=== PATIENT | male | born 2000 | race Two or more races ===

== ENCOUNTER 2024-07-08 04:23 | Inpatient (IN) | payer SELFPAY ==
[~2024-07-08] VITALS: Ht 175.3 cm; Wt 95.4 kg
--- NOTE | 2024-07-08 04:49 | ED.PDOC ---
GI ASSESSMENT HPI Comments 24-year-old male with no reported PMHx presents with a chief complaint of abdominal pain x 1 day with associated nausea, vomiting, and nasal congestion. Patient states that his pain is localized to his diffuse abdomen, tender to his RLQ, nonradiating, describes as aching/sharp sensation, and rates his pain a 8/10. Patient also mentions that he has been experiencing some flu-like symptoms and is congested. Patient denies any injuries or trauma prior to onset of symptoms. Chief Complaint: Abdominal Pain Time Seen by MD: 04:44 Reviewed Notes: Medications, Allergies Allergies: Coded Allergies: NO KNOWN ALLERGIES (Unverified , 07/08/24) Information Source: Patient Mode of Arrival: Ambulatory Timing: Days Duration: Since onset Prehospital treatment: None Quality: Aching, Sharp Vomitus: Food Particles Stool: Normal Severity: Moderate Recent: None Recent Hx of: None Pain Location: Diffuse, RLQ Past Medical History PAST MEDICAL HISTORY: Denies Surgical History: Denies all surgeries Family History Family History: Reviewed,noncontributory to illness Social History Smoker: Non-Smoker Alcohol: Denies ETOH Use Drugs: Denies Drug Use Lives In: Home Constitutional: denies: chills, diaphoresis, fatigue, fever, malaise, sweats, weakness, others EENTM: reports: nose congestion; denies: blurred vision, double vision, ear bleeding, ear discharge, ear drainage, ear pain, ear ringing, eye pain, eye redness, hearing loss, mouth pain, mouth swelling, nasal discharge, nose bleeding, nose pain, photophobia, tearing, throat pain, throat swelling, voice changes, others Respiratory: denies: cough, hemoptysis, orthopnea, SOB at rest, shortness of breath, SOB with excertion, stridor, wheezing, others Cardiovascular: denies: chest pain, dizzy spells, diaphoresis, Dyspnea on exertion, edema, irregular heart beat, left arm pain, lightheadedness, palpitations, PND, syncope, others Gastrointestinal: reports: abdominal pain, nausea, vomiting; denies: abdomen distended, blood streaked bowels, constipated, diarrhea, dysphagia, difficulty swallowing, hematemesis, melena, poor appetite, poor fluid intake, rectal bleeding, rectal pain, others Genitourinary: denies: burning, dysuria, flank pain, frequency, hematuria, incontinence, penile discharge, penile sore, pain, testicle pain, testicle swelling, urgency, others Neurological: denies: dizziness, fainting, headache, left sided numbness, left sided weakness, numbness, paresthesia, pre-existing deficit, right sided numbness, right sided weakness, seizure, speech problems, tingling, tremors, weakness, others Musculoskeletal: denies: back pain, gout, joint pain, joint swelling, muscle pain, muscle stiffness, neck pain, others Integumetry: denies: bruises, change in color, change in hair/nails, dryness, laceration, lesions, lumps, rash, wounds, others Allergic/Immunocompromised: denies: Difficulty Healing, Frequent Infections, Hives, Itching, others Hematologic/Lymphatic: denies: anemia, blood clots, easy bleeding, easy bruising, swollen glands, others Endocrine: denies: excessive hunger, excessive sweating, excessive thirst, excessive urination, flushing, intolerance to cold, intolerance to heat, unexplained weight gain, unexplained weight loss, others Psychiatric: denies: anxiety, bipolar disorder, depression, hopeless, panic disorder, schizophrenia, sleepless, suicidal, others All Other Systems: Reviewed and Negative Physical Exam General Appearance: No Apparent Distress, Normal HEENT: Normal ENT Inspection, Pharynx Normal, TMs Normal Neck: Full Range of Motion, Non-Tender, Normal, Normal Inspection Respiratory: Chest Non-Tender, Lungs Clear, No Accessory Muscle Use, No Respiratory Distress, Normal Breath Sounds Cardiovascular: No Edema, No JVD, No Murmur, No Gallop, Normal Peripheral Pulses, Regular Rate/Rhythm Breast Exam: Deferred Gastrointestinal: No Organomegaly, No Pulsatile Mass, Normal Bowel Sounds, RLQ, Soft, Tenderness Genitalia: Deferred Pelvic: Deferred Rectal: Deferred Extremities: No calf tenderness, Normal capillary refill, Normal inspection, Normal range of motion, Non-tender, No pedal edema Musculoskeletal : Apperance: Normal Neurologic: Alert, rnp II-XII nml as Tested, No Motor Deficits, Normal Affect, Normal Mood, No Sensory Deficits Cerebellar Function: Normal Reflexes: Normal Skin: Dry, Normal Color, Warm Lymphatic: No Adenopathy Was a procedure done? Was a procedure done?: No GI differential Dx Differential Diagnosis: Appendicitis, Diverticular disease, Gastritis/PUD, Gastroenteritis, Pancreatitis, Electrolyte Imbalance, Food Poisoning, Other X-Ray, Labs, Meds, VS Vital Signs Date Time Temp Pulse Resp B/P (MAP) Pulse Ox O2 Delivery O2 Flow Rate FiO2 07/08/24 05:11 75 16 99 Room Air* 0 21 07/08/24 05:11 75 16 139/75 (96) 99 07/08/24 04:38 98.0 78 14 130/79 (96) 97 98.0 Lab Test 07/08/24 05:02 07/08/24 04:42 Range/Units White Blood Count 18.9 H 4.4-10.8 10^3/uL Red Blood Count 5.16 4.5-5.90 10^6/uL Hemoglobin 16.0 13.5-17.5 g/dL Hematocrit 45.8 41.0-53.0 % Mean Corpuscular Volume 88.7 80.0-100.0 fL Mean Corpuscular Hemoglobin 31.1 28.0-32.0 pg Mean Corpuscular Hemoglobin Concent 35.0 32.0-36.0 g/dL Red Cell Distribution Width 13.3 11.8-14.3 % Platelet Count 227 140-450 10^3/uL Mean Platelet Volume 9.1 6.9-10.8 fL Neutrophils (%) (Auto) 85.6 H 37.0-80.0 % Lymphocytes (%) (Auto) 7.8 L 10.0-50.0 % Monocytes (%) (Auto) 6.4 0.0-12.0 % Eosinophils (%) (Auto) 0.1 0.0-7.0 % Basophils (%) (Auto) 0.1 0.0-2.0 % Neutrophils # (Auto) 16.1 H 1.6-8.6 10 ^3/uL Lymphocytes # (Auto) 1.5 0.4-5.4 10 ^3/uL Monocytes # (Auto) 1.2 0-1.3 10 ^3/uL Eosinophils # (Auto) 0 0-0.8 10 ^3/uL Basophils # (Auto) 0 0-0.2 10 ^3/uL Nucleated Red Blood Cells 0.1 % Sodium Level 138 136-145 mmol/L Potassium Level 3.9 3.5-5.1 mmol/L Chloride Level 102 98-107 mmol/L Carbon Dioxide Level 26 20-31 mmol/L Anion Gap 10 5-15 Blood Urea Nitrogen 13 9-23 mg/dL Creatinine 1.03 0.700-1.30 mg/dL Glomerular Filtration Rate Calc 103 >90 mL/min BUN/Creatinine Ratio 12.6 10.0-20.0 Serum Glucose 109 H 74-106 mg/dL Calcium Level 10.3 8.7-10.4 mg/dL Total Bilirubin 0.9 0.2-1.0 mg/dL Aspartate Amino Transferase (AST) 16 13-40 U/L Alanine Aminotransferase (ALT) 40 7-40 U/L Alkaline Phosphatase 77 46-116 U/L Total Protein 8.2 5.7-8.2 g/dL Albumin 4.9 H 3.2-4.8 g/dL Lipase 27 12-53 U/L Urine Color Yellow Yellow Urine Clarity Clear Clear Urine pH 5.5 5.0-9.0 Urine Specific [place] 1.035 1.001-1.035 Urine Protein Trace H Negative Urine Ketones 1+ H Negative Urine Blood Trace H Negative /uL Urine Nitrite Negative Negative Urine Bilirubin Negative Negative Urine Urobilinogen Normal Negative mg/dL Urine Leukocyte Esterase Negative Negative /uL Urine RBC 6 0 - 3 /hpf Urine Microscopic WBC 1 0-3 /HPF Urine Squamous Epithelial Cells None seen <5 /hpf Urine Bacteria None seen None Seen /hpf Urine Mucus Few None Seen Urine Glucose Normal Normal mg/dL Current Medications Medications (Trade) Dose Ordered Sig/Zaira Route Start Time Stop Time Status Last Admin Sodium Chloride 1,000 ml @ 1,000 mls/hr Q1H ONCE IVB 07/08/24 04:45 07/08/24 05:44 DC 07/08/24 05:10 Time of 1ST Reevaluation: 05:14 Reevaluation 1ST: Unchanged Patient Education/Counseling: Diagnosis, Treatment, Prognosis Family Education/Counseling: No Family Present Departure 1 Departure Time of Disposition: 06:03 Impression: Primary Impression: Appendicitis Disposition: ADMITTED INPATIENT Admit to: Med Surg Condition: Guarded Comments Acute Appendicitis Subjective : 24-year-old male presents to the emergency department with acute onset of abdominal pain over the past day, accompanied by nausea, vomiting, and malaise. The pain is notably localized to the right lower quadrant. Laboratory studies reveal an elevated WBC count of 18.9, urinalysis showing 1+ ketones, and an otherwise unremarkable chemistry panel. CT abdomen/pelvis confirms appendicitis without evidence of perforation. Objective: General: Alert, in mild distress due to pain HEENT: Normocephalic, atraumatic Cardiovascular: Regular rate and rhythm, normal heart sounds Respiratory: Clear to auscultation bilaterally Abdomen: Tenderness in RLQ, guarding present Skin: Warm, dry, no rashes Neuro: Alert and oriented x3 Labs: WBC: 18.9 UA: 1+ ketones Chemistry panel: Within normal limits Imaging: CT A/P: Acute appendicitis without perforation Billing: Primary Diagnosis: K35.80 - Unspecified acute appendicitis Secondary Diagnoses: R11.2 - Nausea with vomiting R53.81 - Other malaise Assessment: This is a 24-year-old male presenting with classic symptoms of acute appendicitis, confirmed by physical examination findings of RLQ tenderness and supported by elevated WBC count and CT imaging showing appendicitis without perforation. Plan: #Acute Appendicitis General surgery consultation obtained Admit to hospital for surgical management NPO status IV fluids Pain management as needed #Nausea/Vomiting Antiemetics as needed Monitor oral intake #Disposition Admission to general surgery service Anticipate appendectomy Patient Instructions: You have been diagnosed with appendicitis, which is an infection of your appendix. You will be admitted to the hospital under the care of our surgery team. Do not eat or drink anything until further notice, as you will likely need surgery to remove your appendix. The nurses will give you medicine for pain and nausea as needed. Your surgery team will discuss the operation details with you and answer any questions you may have. This is a common procedure with generally good outcomes when treated promptly. Critical Care Note Critical Care Time?: Yes (35 min-critical care time only) Critical care comment: Total critical care time: Approximately 36 minutes Due to a high probability of clinically significant, life threatening deterioration, the patient required my highest level of preparedness to intervene emergently and I personally spent this critical care time directly and personally managing the patient. This critical care time included obtaining a history; examining the patient; pulse oximetry; ordering and review of studies; arranging urgent treatment with development of a management plan; evaluation of patient's response to treatment; frequent reassessment; and, discussions with other providers. This critical care time was performed to assess and manage the high probability of imminent, life-threatening deterioration that could result in multi-organ failure. It was exclusive of separately billable procedures and treating other patients. Stability Stability form required: No Heart Score Heart Score: Heart Score Response (Comments) Value History N/A 0 EKG N/A 0 Age N/A 0 Risk Factors N/A 0 Troponin N/A 0 Total 0 I personally scribed for BETH WANG MD ([email or web address]) on 07/08/24 at 04:49. Electronically submitted by Joseph Bernard ([email or web address]). BETH WANG MD Jul 08, 2024 04:49
[2024-07-08 04:51] LABS: Urine Bacteria None Seen /hpf (None Seen)
[2024-07-08 04:58] LABS: Urine Blood TRACE /uL (Negative); Urine Clarity Clear (Clear); Urine Color Yellow (Yellow); Urine Mucus FEW (None Seen); Urine Protein, UAD TRACE (Negative); Urine Specific Gravity 1.035 (1.001-1.035); Urine Squamous Epithelial Cell None Seen /hpf (<5); Urine Urobilinogen Normal (Negative); Urine WBC 1 /HPF (0-3); Urine pH 5.5 (5.0-9.0)
[2024-07-08] MEDS: SODIUM CHLORIDE 0.9% 1,000 ML IVB ONE (05:10)
[2024-07-08 05:11] VITALS: PULSE 75; RESP 16; O2SAT 99
[2024-07-08] MEDS: MORPHINE SULFATE 4 MG/ML SYR/VIAL IV ONE ×2 (05:15→15:46)
[2024-07-08] MEDS: ONDANSETRON HCL 4 MG/2 ML VIAL IV ONE ×3 (05:15→15:46)
[2024-07-08 05:26] LABS: Basophils # (auto) 0 10 ^3/uL (0-0.2); Basophils % (auto) 0.1 % (0.0-2.0); Eosinophils # (auto) 0 10 ^3/uL (0-0.8); Eosinophils % (auto) 0.1 % (0.0-7.0); Hematocrit 45.8 % (41.0-53.0); Lymphocytes # (auto) 1.5 10 ^3/uL (0.4-5.4); Lymphocytes % (auto) 7.8 % (10.0-50.0); Mean Corpuscular Hemoglobin 31.1 pg (28.0-32.0); Mean Corpuscular Volume 88.7 fL (80.0-100.0); Monocytes # (auto) 1.2 10 ^3/uL (0-1.3); Monocytes % (auto) 6.4 % (0.0-12.0); Neutrophils # (auto) 16.1 10 ^3/uL (1.6-8.6); Neutrophils % (auto) 85.6 % (37.0-80.0); Nucleated Red Blood Cells % 0.1 %; Platelet Count (auto) 227 10^3/uL (140-450); Red Blood Cells 5.16 10^6/uL (4.5-5.90); Red Cell Distribution Width 13.3 % (11.8-14.3); White Blood Cell 18.9 10^3/uL (4.4-10.8)
[2024-07-08] MEDS: IOHEXOL 300 MG/ML 100ML BOTTLE IJ ONE (05:27)
[2024-07-08 05:33] LABS: Alanine Aminotransferase 40 U/L (7-40); Alkaline Phosphatase 77 U/L (46-116); Anion Gap 10 (5-15); Aspartate Aminotransferase 16 U/L (13-40); BUN/Creatinine Ratio 12.6 (10.0-20.0); Blood Urea Nitrogen 13 mg/dL (9-23); Calcium 10.3 mg/dL (8.7-10.4); Carbon Dioxide 26 mmol/L (20-31); Chloride 102 mmol/L (98-107); Lipase 27 U/L (12-53); Potassium 3.9 mmol/L (3.5-5.1); Sodium 138 mmol/L (136-145); Total Protein 8.2 g/dL (5.7-8.2)
[2024-07-08 05:34] LABS: Bilirubin, Total 0.9 mg/dL (0.2-1.0)
[2024-07-08 05:36] LABS: Albumin 4.9 g/dL (3.2-4.8); Glucose 109 mg/dL (74-106)
--- NOTE | 2024-07-08 05:54 | DVH ---
Exam: CT CT AB PEL WITH IV CON ONLY History: RLQ pain COMPARISON: None Technique: Multidetector spiral CT of the abdomen and pelvis was performed from lung bases to pubic s ymphysis. Intravenous contrast was administered during this examination. Portal venous imaging was o btained. Axial, coronal and sagittal multiplanar reformats were performed by the technologist on a [employer] workstation. Radiation Dose : 1. Abdomen/Pelvis: CTDIvol 13.48 mGy, DLP 824.17 mGy*cm. CONTRAST: Type of contrast: Omnipaque 300 Contrast injected: 100 ml Contrast ingested: None Findings: Lung Bases: No acute or significant lung base finding. Normal heart size. No pleural or pericardial effusion. Liver: The liver is normal in size. No focal lesions. Normal hepatic vascular enhancement. Gallbladder and Biliary Tree: Unremarkable Spleen: Unremarkable Pancreas: The pancreas is normal in appearance without focal lesions or abnormal enhancement. Adrenal Glands: Unremarkable Kidneys: No hydronephrosis. Bladder: Unremarkable Bowel: The stomach is grossly normal in appearance. Small bowel and colon are normal in caliber and d istribution. Increased wall thickening and edema and adjacent inflammatory change. There is no CT ev idence of perforation or abscess. Ascites: Absent Lymphadenopathy: No mesenteric, retroperitoneal or periportal lymphadenopathy. Abdominal Wall and Mesentery: Unremarkable. Vasculature: The visualized abdominal aorta is normal in size and caliber. Abdominal and pelvic vess els demonstrate normal enhancement. Pelvic Organs: Unremarkable Musculoskeletal: No aggressive focal bony lesions, acute fractures or dislocation. IMPRESSION: 1. Acute non perforated appendicitis. 2. These findings were discussed with and acknowledged by Dr. Lopez of the emergency department at 5 :51 a.m. On July 08, 2024. Radiation optimization: All CT scans at this facility use at least one of these dose optimization melina hniques: automated exposure control mA and/or kV adjustment per patient size (includes targeted exam s where dose is matched to clinical indication) or iterative reconstruction.
[2024-07-08] MEDS: SODIUM CHLORIDE 0.9% 1,000 ML IV ONE (06:56)
[2024-07-08] MEDS: metroNIDAZOLE 500MG/100ML 100 ML IV ONE (06:57)
[2024-07-08] MEDS: ceFAZolin 2 GM/D5W50ml 50 ML IV ONE (06:57)
[2024-07-08] MEDS ORDERED: SODIUM CHLORIDE 0.9% 1,000 ML IV SCH (07:45)
[2024-07-08] MEDS ORDERED: ONDANSETRON HCL 4 MG/2 ML VIAL IV PRN ×2 (07:45→08:00)
[2024-07-08] MEDS ORDERED: MORPHINE SULFATE INJ 2 MG/ml SYRG IV PRN ×2 (07:45→08:00)
[2024-07-08] MEDS ORDERED: ACETAMINOPHEN 325 MG TAB PO PRN (07:45)
[2024-07-08] MEDS ORDERED: HYDROcodone-ACET 5/325MG TAB PO PRN ×2 (07:45→08:00)
[2024-07-08 08:16] LABS: Partial Thromboplastin Time 27.5 SEC (24.5-34.5); Prothrombin Time 10.6 sec (9.3-11.8)
--- NOTE | 2024-07-08 09:57 | DVHHP2 ---
History of Present Illness Reason for Visit: Abdominal pain History of Present Illness This 24-year-old male mainly Faroese-speaking patient with no past medical history presents in the ED with a chief complaint of abdominal pain. The patient reports abdominal pain localized to right lower quadrant, tender in palpation, and is associated with nausea and vomiting started yesterday. Denies fever, chills,. Past Medical History Denies Past Surgical History Denies Family History Reviewed, non-contributory to the management of this case. Past Social History The patient lives at home, denies smoking, alcohol or illicit drugs abuse. Review of Systems Constitutional: Yes: Malaise; No: Fever, Chills, Sweats, Weakness, Other Eyes: No: Pain, Vision change, Conjunctivae inflammation, Eyelid inflammation, Other, Redness ENT: No: Ear pain, Ear discharge, Nose pain, Nose discharge, Nose congestion, Mouth pain, Mouth swelling, Throat pain, Throat swelling, Other Cardiovascular: No: Chest Pain, Palpitations, Orthopnea, Paroxysmal Noc. Dyspnea, Edema, Lt Headedness, Other Gastrointestinal: Nausea, Vomiting, Abdominal Pain; No: Diarrhea, Constipation, Melena, Hematochezia, Other Genitourinary: No Dysuria, No Frequency, No Incontinence, No Hematuria, No Retention, No Other Musculoskeletal: No: other, neck pain, shoulder pain, arm pain, back pain, hand pain, leg pain, foot pain Skin: No: Rash, Lesions, Jaundice, Bruising, Other Neurological: No: Weakness, Numbness, Incoordination, Change in speech, Con fusion, Seizures, Other Allergies: Coded Allergies: NO KNOWN ALLERGIES (Unverified , 07/08/24) Medications Current Medications Medications Dose Ordered Sig/Zaira Route Start Time Stop Time Status Last Admin Dose Admin Ondansetron HCl 4 mg Q4HP PRN IV 07/08/24 08:00 Morphine Sulfate 2 mg Q4HPRN PRN IV 07/08/24 08:00 Sodium Chloride 1,000 ml @ 100 mls/hr Q10H IV 07/08/24 08:00 Acetaminophen/ Hydrocodone Bitart 1 tab Q4HP PRN PO 07/08/24 08:00 Acetaminophen 650 mg Q6HP PRN PO 07/08/24 08:00 Exam Vital Signs Vital Signs Date Time Temp Pulse Resp B/P (MAP) Pulse Ox O2 Delivery O2 Flow Rate FiO2 07/08/24 07:20 Room Air* 0 21 07/08/24 07:20 98.0 83 15 127/78 (94) 99 98.0 General Appearance: Alert, Oriented X3, mild distress HEENT: Atraumatic, PERRLA, EOMI, Mucous membr. moist/pink Respiratory: Clear to auscultation, Normal air movement Cardiovascular: Regular rate, Normal S1, Normal S2 Abdominal: Normal bowel sounds, Soft, Other (Mild tenderness to right lower quadrant) Extremities: No clubbing, No cyanosis, No edema, Normal pulses, No ten derness/swelling Skin: No rashes, No breakdown, No significant lesion Neuro: Normal gait, Normal speech, Strength at 5/5 X4 ext, Normal tone Psych/Mental Status: Mental status NL Labs/Xrays Labs Test 07/08/24 07:43 07/08/24 05:02 07/08/24 04:42 Range/Units Lactic Acid Level 1.7 0.4-2.0 mmol/L White Blood Count 18.9 H 4.4-10.8 10^3/uL Red Blood Count 5.16 4.5-5.90 10^6/uL Hemoglobin 16.0 13.5-17.5 g/dL Hematocrit 45.8 41.0-53.0 % Mean Corpuscular Volume 88.7 80.0-100.0 fL Mean Corpuscular Hemoglobin 31.1 28.0-32.0 pg Mean Corpuscular Hemoglobin Concent 35.0 32.0-36.0 g/dL Red Cell Distribution Width 13.3 11.8-14.3 % Platelet Count 227 140-450 10^3/uL Mean Platelet Volume 9.1 6.9-10.8 fL Neutrophils (%) (Auto) 85.6 H 37.0-80.0 % Lymphocytes (%) (Auto) 7.8 L 10.0-50.0 % Monocytes (%) (Auto) 6.4 0.0-12.0 % Eosinophils (%) (Auto) 0.1 0.0-7.0 % Basophils (%) (Auto) 0.1 0.0-2.0 % Neutrophils # (Auto) 16.1 H 1.6-8.6 10 ^3/uL Lymphocytes # (Auto) 1.5 0.4-5.4 10 ^3/uL Monocytes # (Auto) 1.2 0-1.3 10 ^3/uL Eosinophils # (Auto) 0 0-0.8 10 ^3/uL Basophils # (Auto) 0 0-0.2 10 ^3/uL Nucleated Red Blood Cells 0.1 % Prothrombin Time 10.6 9.3-11.8 sec Prothrombin Time INR 1.00 0.9-1.15 Activated Partial Thromboplast Time 27.5 24.5-34.5 SEC Sodium Level 138 136-145 mmol/L Potassium Level 3.9 3.5-5.1 mmol/L Chloride Level 102 98-107 mmol/L Carbon Dioxide Level 26 20-31 mmol/L Anion Gap 10 5-15 Blood Urea Nitrogen 13 9-23 mg/dL Creatinine 1.03 0.700-1.30 mg/dL Glomerular Filtration Rate Calc 103 >90 mL/min BUN/Creatinine Ratio 12.6 10.0-20.0 Serum Glucose 109 H 74-106 mg/dL Calcium Level 10.3 8.7-10.4 mg/dL Total Bilirubin 0.9 0.2-1.0 mg/dL Aspartate Amino Transferase (AST) 16 13-40 U/L Alanine Aminotransferase (ALT) 40 7-40 U/L Alkaline Phosphatase 77 46-116 U/L Total Protein 8.2 5.7-8.2 g/dL Albumin 4.9 H 3.2-4.8 g/dL Lipase 27 12-53 U/L Urine Color Yellow Yellow Urine Clarity Clear Clear Urine pH 5.5 5.0-9.0 Urine Specific [place] 1.035 1.001-1.035 Urine Protein Trace H Negative Urine Ketones 1+ H Negative Urine Blood Trace H Negative /uL Urine Nitrite Negative Negative Urine Bilirubin Negative Negative Urine Urobilinogen Normal Negative mg/dL Urine Leukocyte Esterase Negative Negative /uL Urine RBC 6 0 - 3 /hpf Urine Microscopic WBC 1 0-3 /HPF Urine Squamous Epithelial Cells None seen <5 /hpf Urine Bacteria None seen None Seen /hpf Urine Mucus Few None Seen Urine Glucose Normal Normal mg/dL PROCEDURE(s): ABPLIV - CT AB PEL WITH IV CON ONLY REASON: RLQ pain ORDER NUMBER(s): [id number], ACCESSION NUMBER(s): [id number] Exam: CT CT AB PEL WITH IV CON ONLY History: RLQ pain COMPARISON: None Technique: Multidetector spiral CT of the abdomen and pelvis was performed from lung bases to pubic symphysis. Intravenous contrast was administered during this examination. Portal venous imaging was obtained. Axial, coronal and sagittal multiplanar reformats were performed by the technologist on a separate workstation. Radiation Dose : 1. Abdomen/Pelvis: CTDIvol 13.48 mGy, DLP 824.17 mGy*cm. CONTRAST: Type of contrast: Omnipaque 300 Contrast injected: 100 ml Contrast ingested: None Findings: Lung Bases: No acute or significant lung base finding. Normal heart size. No pleural or pericardial effusion. Liver: The liver is normal in size. No focal lesions. Normal hepatic vascular enhancement. Gallbladder and Biliary Tree: Unremarkable Spleen: Unremarkable Pancreas: The pancreas is normal in appearance without focal lesions or abnormal enhancement. Adrenal Glands: Unremarkable Kidneys: No hydronephrosis. Bladder: Unremarkable Bowel: The stomach is grossly normal in appearance. Small bowel and colon are normal in caliber and distribution. Increased wall thickening and edema and adjacent inflammatory change. There is no CT evidence of perforation or abscess. Ascites: Absent Lymphadenopathy: No mesenteric, retroperitoneal or periportal lymphadenopathy. Abdominal Wall and Mesentery: Unremarkable. Vasculature: The visualized abdominal aorta is normal in size and caliber. Abdominal and pelvic vessels demonstrate normal enhancement. Pelvic Organs: Unremarkable Musculoskeletal: No aggressive focal bony lesions, acute fractures or dislocation. IMPRESSION: 1. Acute non perforated appendicitis. 2. These findings were discussed with and acknowledged by Dr. Lopez of the emergency department at 5:51 a.m. On July 08, 2024. Assessment/Plan Assessment/Plan # acute non perforated appendicitis Admit to med/surgical unit Empiric antibiotic Surgical team consult NPO until seen by surgical Pain control IV fluid # obesity Lifestyle modification counseled on diet, regular exercise, and weight loss Medical plan discussed with patient and RN Plan discussed with: Patient My Orders Orders - SALVATORE TRUONG Procedure Category Date Status Time Admit ADMIT 07/08/24 Transmitted 07:40 Code Status CODE 07/08/24 Transmitted 07:40 Complete Blood Count LAB 07/09/24 Verified 04:00 Comprehensive LAB 07/09/24 Verified Metabolic Panel 04:00 Npo (Nothing By DIET 07/08/24 Transmitted Mouth) Diet Breakfast Condition: Fair MISHA 07/08/24 In Process 07:40 Ondansetron Hcl PHA 07/08/24 In Process (Zofran) 08:00 Morphine Sulfate PHA 07/08/24 In Process Injection 08:00 Sodium Chloride 0.9% PHA 07/08/24 In Process 08:00 Hydrocodone-Acet PHA 07/08/24 In Process 5/325mg Tab ([place] 08:00 Acetaminophen Tablet PHA 07/08/24 In Process (Tylenol Tablet) 08:00 Date of Service: Jul 08, 2024 Billing Provider: SALVATORE TRUONGP Common Visit Codes: [id number] INP/OBS CARE (HIGH) SALVATORE TRUONG CONSUMER ATTORNEY Jul 08, 2024 09:57
[2024-07-08] MEDS ORDERED: HYDROmorphone HCL 2 MG/ML VL/or syr ONE (10:40)
[2024-07-08] MEDS ORDERED: KETOROLAC TROMETH 30 MG/ML 1ML VIAL ONE (10:41)
[2024-07-08] MEDS ORDERED: MIDAZOLAM HCL 2MG/2ML 2ml VIAL (1mg/ml) ONE (10:41)
[2024-07-08] MEDS ORDERED: ePHEDrine SULFATE 50 MG/ML AMP ONE (10:41)
[2024-07-08] MEDS ORDERED: ROCURONIUM 10MG/ML 10ML VIAL IV ONE (10:41)
[2024-07-08] MEDS ORDERED: LIDOCAINE 2% (LOCAL ANESTH.) PF 5ml SDV ONE (10:41)
[2024-07-08] MEDS ORDERED: GLYCOPYRROLATE 0.2 MG/ML 1ML VIAL ONE (10:41)
[2024-07-08] MEDS ORDERED: DexAMETHasone SOD PHOS 10MG/1ML VIAL INJ ONE (10:41)
[2024-07-08] MEDS ORDERED: ONDANSETRON HCL 4 MG/2 ML VIAL ONE (10:41)
[2024-07-08] MEDS ORDERED: fentaNYL CITRATE 100 MCG/2 ML VL ONE ×2 (10:41→12:06)
[2024-07-08] MEDS ORDERED: PROPOFOL 10 MG/ML 20 ML IV ONE (10:41)
--- NOTE | 2024-07-08 10:44 | DVHINCON2 ---
Consultation - Surgical Date Seen: Jul 08, 2024 Referring Physician Reason for Consultation abdominal pain History of Present Illness History of Present Illness 24M w no PMHx w 2d h/o migratory RLQ abd pain, nausea and anorexia. Reports subjective fevers and chills. Past Medical/Surgical History Past Medical/Surgical History none Family and Social History Family and Social History no drugs, alcohol, tobacco Allergies and medications Allergies: Coded Allergies: NO KNOWN ALLERGIES (Unverified , 07/08/24) Home Meds Active Scripts Amoxicillin & Pot Clavulanate (Augmentin) 500 Mg Tab, 1 TAB PO BID for 5 Days, #10 TAB Prov:JOSE DENNY PIN ATTACHER 07/09/24 Review of systems Review of Systems: HEENT:Normal, CVS:Normal, RESPIRATORY:Normal, GI:Abnormal (abd pain), :Normal, MSK:Normal, NEURO:Normal Examination Vital signs Vital Signs Date Time Temp Pulse Resp B/P (MAP) Pulse Ox O2 Delivery O2 Flow Rate FiO2 07/08/24 10:06 98.1 84 18 108/61 (77) 98 98.1 07/08/24 07:20 Room Air* 0 21 Medications Current Medications Medications (Trade) Dose Ordered Sig/Zaira Route PRN Reason Start Time Stop Time Status Last Admin Sodium Chloride 1,000 ml @ 100 mls/hr Q10H IV 07/08/24 07:45 07/08/24 07:54 DC Acetaminophen/ Hydrocodone Bitart ([place] 5/325MG Tab) 1 tab Q4HP PRN PO MODERATE PAIN (4-6 PAIN SCALE) 07/08/24 07:45 07/08/24 07:54 DC Ondansetron HCl (Zofran) 4 mg Q4HP PRN IV NAUSEA / VOMITING 07/08/24 07:45 07/08/24 07:54 DC Acetaminophen (Tylenol Tablet) 650 mg Q6HP PRN PO PAIN SCALE 1-3 OR TEMP>100.4 07/08/24 07:45 07/08/24 07:54 DC Morphine Sulfate 2 mg Q4HPRN PRN IV SEVERE PAIN (7-10 PAIN SCALE) 07/08/24 07:45 07/08/24 07:54 DC Ondansetron HCl (Zofran) 4 mg Q4HP PRN IV NAUSEA / VOMITING 07/08/24 08:00 Morphine Sulfate 2 mg Q4HPRN PRN IV SEVERE PAIN (7-10 PAIN SCALE) 07/08/24 08:00 Sodium Chloride 1,000 ml @ 100 mls/hr Q10H IV 07/08/24 08:00 Acetaminophen/ Hydrocodone Bitart ([place] 5/325MG Tab) 1 tab Q4HP PRN PO MODERATE PAIN (4-6 PAIN SCALE) 07/08/24 08:00 Acetaminophen (Tylenol Tablet) 650 mg Q6HP PRN PO PAIN SCALE 1-3 OR TEMP>100.4 07/08/24 08:00 Hydromorphone HCl (Dilaudid Injection) 0.5 mg Q10M PRN IV SEVERE PAIN (7-10 PAIN SCALE) 07/08/24 10:45 07/08/24 11:26 Laboratory Labs Test 07/08/24 07:43 07/08/24 05:02 07/08/24 04:42 Range/Units Lactic Acid Level 1.7 0.4-2.0 mmol/L White Blood Count 18.9 H 4.4-10.8 10^3/uL Red Blood Count 5.16 4.5-5.90 10^6/uL Hemoglobin 16.0 13.5-17.5 g/dL Hematocrit 45.8 41.0-53.0 % Mean Corpuscular Volume 88.7 80.0-100.0 fL Mean Corpuscular Hemoglobin 31.1 28.0-32.0 pg Mean Corpuscular Hemoglobin Concent 35.0 32.0-36.0 g/dL Red Cell Distribution Width 13.3 11.8-14.3 % Platelet Count 227 140-450 10^3/uL Mean Platelet Volume 9.1 6.9-10.8 fL Neutrophils (%) (Auto) 85.6 H 37.0-80.0 % Lymphocytes (%) (Auto) 7.8 L 10.0-50.0 % Monocytes (%) (Auto) 6.4 0.0-12.0 % Eosinophils (%) (Auto) 0.1 0.0-7.0 % Basophils (%) (Auto) 0.1 0.0-2.0 % Neutrophils # (Auto) 16.1 H 1.6-8.6 10 ^3/uL Lymphocytes # (Auto) 1.5 0.4-5.4 10 ^3/uL Monocytes # (Auto) 1.2 0-1.3 10 ^3/uL Eosinophils # (Auto) 0 0-0.8 10 ^3/uL Basophils # (Auto) 0 0-0.2 10 ^3/uL Nucleated Red Blood Cells 0.1 % Prothrombin Time 10.6 9.3-11.8 sec Prothrombin Time INR 1.00 0.9-1.15 Activated Partial Thromboplast Time 27.5 24.5-34.5 SEC Sodium Level 138 136-145 mmol/L Potassium Level 3.9 3.5-5.1 mmol/L Chloride Level 102 98-107 mmol/L Carbon Dioxide Level 26 20-31 mmol/L Anion Gap 10 5-15 Blood Urea Nitrogen 13 9-23 mg/dL Creatinine 1.03 0.700-1.30 mg/dL Glomerular Filtration Rate Calc 103 >90 mL/min BUN/Creatinine Ratio 12.6 10.0-20.0 Serum Glucose 109 H 74-106 mg/dL Calcium Level 10.3 8.7-10.4 mg/dL Total Bilirubin 0.9 0.2-1.0 mg/dL Aspartate Amino Transferase (AST) 16 13-40 U/L Alanine Aminotransferase (ALT) 40 7-40 U/L Alkaline Phosphatase 77 46-116 U/L Total Protein 8.2 5.7-8.2 g/dL Albumin 4.9 H 3.2-4.8 g/dL Lipase 27 12-53 U/L Urine Color Yellow Yellow Urine Clarity Clear Clear Urine pH 5.5 5.0-9.0 Urine Specific [place] 1.035 1.001-1.035 Urine Protein Trace H Negative Urine Ketones 1+ H Negative Urine Blood Trace H Negative /uL Urine Nitrite Negative Negative Urine Bilirubin Negative Negative Urine Urobilinogen Normal Negative mg/dL Urine Leukocyte Esterase Negative Negative /uL Urine RBC 6 0 - 3 /hpf Urine Microscopic WBC 1 0-3 /HPF Urine Squamous Epithelial Cells None seen <5 /hpf Urine Bacteria None seen None Seen /hpf Urine Mucus Few None Seen Urine Glucose Normal Normal mg/dL Examination: GENERAL:Normal, HEENT:Normal, NECK:Normal, LUNGS:Normal, CVS:Normal, ABDOMEN:Normal, ABDOMEN:Abnormal (RLQ ABD TTP, NO LEAH/GUARDING, NO HERNIAS), MSK:Normal, SKIN:Normal, NEURO:Normal, :Normal Problem List/Assessment/Plan Problems: (1) Appendicitis Assessment and Plan 24M w 2d h/o of migratory RLQ, anorexia and nausea. CT shows distended appendix with periappendiceal stranding c/w acute appendicitis. - Acute appendicitis OR for lap appy ABX NPO multimodal analgesia antiemetics prn VTE ppx Plan discussed with Plan discussed with: Patient Visit Coding Surgery Date of Service if different f: Jul 08, 2024 Billing Provider: JER MARTINEZ MD Surgery Visit Codes: [id number] - INP CONSULT <40 MIN JER MARTINEZ MD Jul 08, 2024 10:44
[2024-07-08] MEDS ORDERED: HYDROmorphone HCL 2 MG/ML VL/or syr IV PRN (10:45)
[2024-07-08] MEDS ORDERED: SUGAMMADEX 200mg/2ml Vial (100MG/ML) IV ONE (11:41)
[2024-07-08] MEDS ORDERED: KETOROLAC TROMETH 30 MG/ML 1ML VIAL IV PRN (12:15)
[2024-07-08 12:29] VITALS: PULSE 80; RESP 18; O2SAT 100
--- NOTE | 2024-07-08 12:36 | DVHOP2 ---
Operative Report - 2 Report Details Date: 07/08/24 Preop Diagnosis: acute appendicitis Postop Diagnosis: acute appendicitis, non-perforated Surgeon: Jer Martinez MD Applied Research Director: Mary Beard Anesthesiologist: Dr Moseley Anesthesia: General Consent: The patient was informed of the risks and benefits of the procedure. These include but are not limited to complications of anesthesia, postoperative infection, incomplete relief of symptoms, recurrence of symptoms, damage to blood vessels, nerves and tendons, deep venous thrombosis, pulmonary embolism and possible need for repeat surgery in the future. Complications: none Estimated Blood Loss: minimal Findings: inflamed, erythematous nonperforated appendix Name of Procedure Performed laparoscopic appendectomy Procedure Details Procedure Details: The patient was seen by me in the preoperative holding area. History, exam and radiological studies all c/w with acute appendicitis. The indications and risks of the procedure were explained and patient agreed to proceed. He was taken to the operating room and given perioperative antibiotics prior to coming to the surgery within 60 minutes of incision. General anesthesia was carried out without difficulty and a Duncan catheter was not inserted. The left arm was tucked and the abdomen was prepped with Betadine and draped in sterile fashion. A supraumbilical incision was sharply made and veress needle carefully inserted. Drop test confirmed intra-abdominal placement, and CO2 was instilled to attain an adequate pneumoperitoneum. Once pneumoperitoneum obtained, veress needle removed and 10mm trochar was inserted. Laparoscope was introduced and abdomen was surveillanced and no entry related injuries identified. Next 5mm accessory ports were placed in the LLQ and suprapubic region. Prior to insertion all trochar sites were injected with quarter percent Marcaine. The patient was placed head down and airplaned with the right side up exposing the right lower quadrant. Using graspers, the omentum was gently swept upwards and the appendix was exposed. The appendix was inflamed and suppurative but not perforated. No abscesses appreciated. The appendix was grasped carefully and lifted upwards. Using a harmonic scalpel the mesoappendix was divided down to the cecum and base of appendix. Next a Endo YARIEL with blue load was used to divide the appendix at it's base. Once divided, the appendix was placed into an Endobag. The cecum and appendiceal base were inspected. The staple line and cecum were intact and looked healthy. There was good hemostasis. The appendix with the endobag were removed and passed off for pathology. Hemostasis was again confirmed. Under direct visualization accessory ports were removed and good hemostasis noted. Pneumoperitoneum was released. The supraumbilical port was removed and fascia was closed with Vicryl suture. All skin incisions were injected with 0.25% Marcaine and closed with 4-0 Monocryl suture in a subcuticular fashion. Steri- strips and sterile dressings were applied. Instrument, needle and sponge counts correct times two. No complications. Minimal blood loss. Specimen is the appendix. Brought to the recovery room in stable surgical condition. Specimen: appendix w/ mesoappendix Condition Good Disposition Acute Care Facility JER MARTINEZ MD Jul 08, 2024 12:36
[2024-07-08] MEDS: BUPIVACAINE 0.5% MPF INJ 30ML SDV IJ ONE (13:39)
[2024-07-08] MEDS: cefOXitin 2GM/100ML 100 ML IV SCH (14:52)
[2024-07-08] MEDS: METHOCARBAMOL 500 MG TAB PO SCH (14:52)
[2024-07-08] MEDS: ceFAZolin 2 GM/D5W100ml 100 ML IV ONE (15:46)
[2024-07-08] MEDS: LIDOCAINE W/ EPINEPHRINE 1% 20ML VIAL ONE (15:46)
[2024-07-08] MEDS: SODIUM CHLORIDE 0.9% 1,000 ML IV SCH (16:20)
[2024-07-08 16:30] VITALS: BP 135/77; PULSE 87; RESP 17; TEMP 98.2; O2SAT 95
[2024-07-08] MEDS: ONDANSETRON HCL 4 MG/2 ML VIAL IV PRN (19:57)
[2024-07-08] MEDS: ACETAMINOPHEN 325 MG TAB PO PRN (19:57)
[2024-07-08 21:00] VITALS: BP 123/56; PULSE 79; RESP 19; TEMP 98.3; O2SAT 96
[2024-07-09 01:00] VITALS: BP 118/55; PULSE 73; RESP 18; TEMP 97.7; O2SAT 97
[2024-07-09 05:00] VITALS: BP 124/54; PULSE 68; RESP 17; TEMP 97.6; O2SAT 98
[2024-07-09 06:34] LABS: Basophils # (auto) 0 10 ^3/uL (0-0.2); Eosinophils # (auto) 0 10 ^3/uL (0-0.8); Hemoglobin 13.5 g/dL (13.5-17.5); Lymphocytes # (auto) 1.4 10 ^3/uL (0.4-5.4); Mean Corpuscular Hemoglobin 31.3 pg (28.0-32.0); Mean Corpuscular Hgb Conc. 34.6 g/dL (32.0-36.0); Mean Corpuscular Volume 90.6 fL (80.0-100.0); Monocytes # (auto) 0.7 10 ^3/uL (0-1.3); Monocytes % (auto) 6.2 % (0.0-12.0); Neutrophils # (auto) 9.3 10 ^3/uL (1.6-8.6); Neutrophils % (auto) 81.8 % (37.0-80.0); Platelet Count (auto) 214 10^3/uL (140-450); Red Cell Distribution Width 13.3 % (11.8-14.3); White Blood Cell 11.4 10^3/uL (4.4-10.8)
[2024-07-09 07:10] LABS: Alanine Aminotransferase 24 U/L (7-40); Albumin 4.1 g/dL (3.2-4.8); Alkaline Phosphatase 63 U/L (46-116); Anion Gap 9 (5-15); BUN/Creatinine Ratio 7.4 (10.0-20.0); Bilirubin, Total 0.6 mg/dL (0.2-1.0); Calcium 9.6 mg/dL (8.7-10.4); Carbon Dioxide 24 mmol/L (20-31); Chloride 106 mmol/L (98-107); Potassium 4.2 mmol/L (3.5-5.1); Sodium 139 mmol/L (136-145); Total Protein 6.8 g/dL (5.7-8.2)
[2024-07-09 07:20] LABS: Aspartate Aminotransferase 10 U/L (13-40); Blood Urea Nitrogen 6 mg/dL (9-23); Glucose 109 mg/dL (74-106)
[2024-07-09 09:14] VITALS: BP 119/61; PULSE 70; RESP 16; TEMP 98; O2SAT 98
--- NOTE | 2024-07-09 10:07 | DVHPN2 ---
Progress Note Date Seen: Jul 09, 2024 Medical Necessity Reason Pt with a Central, PICC or Fol: No Objective vital signs Vital Sign Date Time Temp Pulse Resp B/P (MAP) Pulse Ox O2 Delivery O2 Flow Rate FiO2 07/09/24 09:14 98.0 70 16 119/61 (80) 98 98.0 07/08/24 20:00 Room Air* 0 21 Total Intake and Output 07/08/24 07/08/24 07/09/24 15:00 23:00 07:00 Intake Total 300 ml 1600 ml Output Total 200 ml Balance 100 ml 1600 ml medications Current Medications Medications Dose Ordered Sig/Zaira Route Start Time Stop Time Status Last Admin Dose Admin Morphine Sulfate 2 mg Q4HPRN PRN IV 07/08/24 08:00 Sodium Chloride 1,000 ml @ 100 mls/hr Q10H IV 07/08/24 08:00 07/09/24 03:55 100 MLS/HR Acetaminophen/ Hydrocodone Bitart 1 tab Q4HP PRN PO 07/08/24 08:00 Acetaminophen 650 mg Q6HP PRN PO 07/08/24 08:00 07/08/24 19:57 650 MG Ondansetron HCl 4 mg Q4HP PRN IV 07/08/24 12:15 07/08/24 19:57 4 MG Ketorolac Tromethamine 15 mg Q6HPRN PRN IV 07/08/24 12:15 07/13/24 12:14 Methocarbamol 1,000 mg Q8HR PO 07/08/24 14:00 07/09/24 05:28 1,000 MG laboratory and microbiology Laboratory Tests 07/09/24 04:59 Test 07/09/24 04:59 Range/Units Serum Glucose 109 H 74-106 mg/dL Problem List/Assessment/Plan Problem List/Assessment/Plan 07/09/24 feels better, abdomen appropriately tender, wounds clean and we;ll approximated, cleared for discharge Plan discussed with: Patient OSCAR GORMAN MD Jul 09, 2024 10:07
[2024-07-09] MEDS ORDERED: AMOX500T86 PO (11:28)
--- NOTE | 2024-07-09 11:30 | DVHDS2 ---
Discharge Summary Date of Admission Jul 08, 2024 at 07:40 Date of Discharge: Jul 09, 2024 Admitting Diagnosis Acute appendicitis Labs/Diagnostic Data: Laboratory Results Test 07/09/24 04:59 07/08/24 07:43 07/08/24 05:02 07/08/24 04:42 White Blood Count 11.4 10^3/uL (4.4-10.8) Red Blood Count 4.30 10^6/uL (4.5-5.90) Hemoglobin 13.5 g/dL (13.5-17.5) Hematocrit 39.0 % (41.0-53.0) Mean Corpuscular Volume 90.6 fL (80.0-100.0) Mean Corpuscular Hemoglobin 31.3 pg (28.0-32.0) Mean Corpuscular Hemoglobin Concent 34.6 g/dL (32.0-36.0) Red Cell Distribution Width 13.3 % (11.8-14.3) Platelet Count 214 10^3/uL (140-450) Mean Platelet Volume 9.4 fL (6.9-10.8) Neutrophils (%) (Auto) 81.8 % (37.0-80.0) Lymphocytes (%) (Auto) 12.0 % (10.0-50.0) Monocytes (%) (Auto) 6.2 % (0.0-12.0) Eosinophils (%) (Auto) 0.0 % (0.0-7.0) Basophils (%) (Auto) 0.0 % (0.0-2.0) Neutrophils # (Auto) 9.3 10 ^3/uL (1.6-8.6) Lymphocytes # (Auto) 1.4 10 ^3/uL (0.4-5.4) Monocytes # (Auto) 0.7 10 ^3/uL (0-1.3) Eosinophils # (Auto) 0 10 ^3/uL (0-0.8) Basophils # (Auto) 0 10 ^3/uL (0-0.2) Nucleated Red Blood Cells 0.0 % Sodium Level 139 mmol/L (136-145) Potassium Level 4.2 mmol/L (3.5-5.1) Chloride Level 106 mmol/L (98-107) Carbon Dioxide Level 24 mmol/L (20-31) Anion Gap 9 (5-15) Blood Urea Nitrogen 6 mg/dL (9-23) Creatinine 0.81 mg/dL (0.700-1.30) Glomerular Filtration Rate Calc 125 mL/min (>90) BUN/Creatinine Ratio 7.4 (10.0-20.0) Serum Glucose 109 mg/dL (74-106) Calcium Level 9.6 mg/dL (8.7-10.4) Total Bilirubin 0.6 mg/dL (0.2-1.0) Aspartate Amino Transferase (AST) 10 U/L (13-40) Alanine Aminotransferase (ALT) 24 U/L (7-40) Alkaline Phosphatase 63 U/L (46-116) Total Protein 6.8 g/dL (5.7-8.2) Albumin 4.1 g/dL (3.2-4.8) Lactic Acid Level 1.7 mmol/L (0.4-2.0) Prothrombin Time 10.6 sec (9.3-11.8) Prothrombin Time INR 1.00 (0.9-1.15) Activated Partial Thromboplast Time 27.5 SEC (24.5-34.5) Lipase 27 U/L (12-53) Urine Color Yellow (Yellow) Urine Clarity Clear (Clear) Urine pH 5.5 (5.0-9.0) Urine Specific [place] 1.035 (1.001-1.035) Urine Protein Trace (Negative) Urine Ketones 1+ (Negative) Urine Blood Trace /uL (Negative) Urine Nitrite Negative (Negative) Urine Bilirubin Negative (Negative) Urine Urobilinogen Normal mg/dL (Negative) Urine Leukocyte Esterase Negative /uL (Negative) Urine RBC 6 /hpf (0 - 3) Urine Microscopic WBC 1 /HPF (0-3) Urine Squamous Epithelial Cells None seen /hpf (<5) Urine Bacteria None seen /hpf (None Seen) Urine Mucus Few (None Seen) Urine Glucose Normal mg/dL (Normal) Other Laboratory Tests 07/09/24 04:59 Brief Hx & Hospital Course: History of Present Illness This 24-year-old male mainly Estonian-speaking patient with no past medical history presents in the ED with a chief complaint of abdominal pain. The patient reports abdominal pain localized to right lower quadrant, tender in palpation, and is associated with nausea and vomiting started yesterday. Denies fever, chills,. Course of hospitalization: Patient was taken the operating room yesterday for laparoscopic appendectomy. Postoperative recovery was uneventful. Patient was cleared for discharge by Dr. Huang today. He will follow up with him in 1-2 weeks. Patient will be continued on antibiotic therapy in the form of Augmentin 500 mg p.o. b.i.d. for the next five days. Patient was states that his pain is tolerable, for which she will be recommended take [id number] Tylenol for pain management. Physical examination General: Alert and Oriented x3. No acute distress. Well-nourished. Eyes: EOMI. Anicteric. HENT: Moist mucous membranes. Lungs: Clear to auscultation bilaterally. No accessory muscle use. Cardiovascular: Regular rate and rhythm. No murmur. No JVD. Abdomen: Soft, non-tender and non-distended. No palpable masses. Extremities: No edema. Non-tender. Skin: No rashes or lesions. Warm. Neurologic: No focal neurological deficits. CN II-XII grossly intact, but not individually tested. Psychiatric: Cooperative. Appropriate mood and affect. Total time spent with patient discussing and formulating plan of care: 35 minutes. This medical document was created using an electronic medical record system with [employer] dictation system. Although this document has been carefully reviewed, there may still be some phonetic and typographical errors. These areas are purely typographical due to imperfections of the software programs, and do not reflect any compromise in the patient's medical care. Condition at Discharge: Fair Final Diagnosis/Problems List Acute Appendicitis Discharge Disposition: Home Discharge Instruct/Medications Diet: Regular Activity: No Restrictions, As Tolerated Follow Up/Referral: Follow up with Dr. Rizzo in 1-2 weeks Medications: Augmentin 500 mg p.o. b.i.d. x4 days [id number] Tylenol for pain 36 Discharge Statement: "Patient was advised to return to the ER or call 911 if any headaches, dizziness, shortness of breath, chest pain, abdominal pain, bleeding, fevers, or worsening of medical condition. Patient was counseled about treatment plan, medications, possible side effects, patientverbalized understanding. All questions were answered to the best of my ability. This discharge took greater then 30 minutes in planning, reviewing documentation, counseling the patient, and discussing with other team members." ASSESSMENT ASSESSMENT Assessment Acute Appendicitis Date of Service: Jul 09, 2024 Billing Provider: JOSE DENNY NP Common Visit Codes: [id number] INP/OBS CARE(HIGH) JOSE DENNY NP Jul 09, 2024 11:30
[2024-07-09 13:00] VITALS: BP 126/67; PULSE 65; RESP 18; TEMP 98; O2SAT 99
== END 2024-07-09 14:45 | disposition home or self-care (01) | DRG 399 ==
LOC: ER 04:23 → OVERFLOW 07:40 → ER 07:44 → WEST WING 13:43
PROVIDERS: ADMIT Nurse Practitioner Acute Care; ATTEND Nurse Practitioner Acute Care
PROC: 0DTJ4ZZ Resection of Appendix, Percutaneous Endoscopic Approach (ICD-10-PCS; principal; 2024-07-08 11:03)
DX: K35.80 Unspecified acute appendicitis (principal); E66.9 Obesity, unspecified; Z68.31 Body mass index [BMI] 31.0-31.9, adult; Z79.2 Long term (current) use of antibiotics; Z79.899 Other long term (current) drug therapy
CPT/HCPCS: 36415; 74177; 80053; 81001; 83605; 83690; 85025; 85610; 85730; 86850; 86900; 86901; 87040; 96360; 96361; 99291; G0378; J0694; J1100; J1885; J2003; J2250; J2405; J2704; J3490